=== PATIENT | female | born 1960 | race Two or more races ===

== ENCOUNTER 2023-09-03 19:22 | Emergency (ER) | payer OTHER, SELFPAY ==
[~2023-09-03] VITALS: Ht 162.6 cm; Wt 86.1 kg
[2023-09-03] MEDS: IBUPROFEN 600 MG TAB PO ONE (21:36)
[2023-09-03 21:44] VITALS: BP 149/75; PULSE 79; RESP 20; TEMP 97.5; O2SAT 97
[2023-09-03 21:45] LABS: Urine Bacteria None Seen /hpf (None Seen); Urine WBC None Seen /hpf (0 - 5)
[2023-09-03 22:12] LABS: Urine Blood 1+ /uL (Negative); Urine Clarity Clear (Clear); Urine Color Light-Yellow (Yellow); Urine Protein, UAD Negative (Negative); Urine Specific Gravity 1.023 (1.001-1.035); Urine Urobilinogen Normal (Negative)
[2023-09-03] MEDS: LIDOCAINE 5% TOPICAL PATCH TOP ONE (22:38)
== END 2023-09-03 22:48 | disposition home or self-care (01) ==
LOC: ER 19:22
DX: S39.012A Strain of muscle, fascia and tendon of lower back, initial encounter (principal); E78.5 Hyperlipidemia, unspecified; X50.9XXA Other and unspecified overexertion or strenuous movements or postures, initial encounter; Y93.89 Activity, other specified; Y92.89 Other specified places as the place of occurrence of the external cause; Y99.8 Other external cause status
CPT/HCPCS: 81001